=== PATIENT | male | born 1965 | race Caucasian/White ===

== ENCOUNTER → 2016-11-24 11:26 | Day surgery (SDC) | payer BC ==
--- NOTE | 2016-11-15 22:53 | HP ---
ADMISSION HISTORY AND PHYSICAL: DATE OF ADMISSION: 11/24/16 ATTENDING SURGEON: Jonn Cardoso MD (dictated by ALTHEA Gandara) CHIEF COMPLAINT: Left inguinal hernia. HISTORY OF PRESENT ILLNESS: This is a 51-year-old male who underwent open right inguinal herniorrhaphy with mesh approximately 10 to 12 years ago. He has noted pain intermittently in the left groin over the past 4 to 6 weeks that has particularly increased in relation to activity, i.e., bending, lifting, etc. He has not noted any particular bulge in the left groin. In addition, he has noticed an area of pain in the right groin superior to the prior open herniorrhaphy that comes and goes and feels like a "knot." There is no additional associated bulge and no GI or changes in the past month or two. He was seen by his PCP office and referred for surgical evaluation. An ultrasound was also ordered for the right side, which is scheduled for . He was seen in the office by Dr. Cardoso on 11/08/16 at which time exam confirmed the presence of left inguinal hernia, felt to be likely direct. There was no hernia noted on the right. There was a small area as described above that was felt to be consistent with a furuncle though this has not progressed one way or the other over the past week, per the patient. PAST MEDICAL HISTORY: 1. GERD. 2. Nephrolithiasis (he has had small bilateral kidney stones which were demonstrated on a noncontrast CT scan in 2016). 3. He has diarrhea predominant. 4. Irritable bowel syndrome, which is largely controlled by diet. 5. He was worked up in 2012 for chest pain that retrospectively appeared to be related to reflux disease. He did undergo stress testing echo and ultimately catheterization, which was negative for any coronary disease. He had a normal ejection fraction at that time. He was found to have a low HDL at that time as well though his other total cholesterol and LDL were within normal limits. PREVIOUS SURGERIES: Include: 1. Open right inguinal herniorrhaphy with mesh as noted above. 2. Bilateral varicose vein stripping. 3. Tonsillectomy, remotely. 4. Sinus surgery. 5. He has bilateral vasectomies. CURRENT MEDICATIONS: 1. Omeprazole 20 mg once daily. 2. Multivitamin once daily when he remembers. DRUG ALLERGIES: None known. FAMILY HISTORY: Strong for cardiovascular disease on his father's side. There is no known family history of bleeding or clotting disorders or problems with general anesthesia. SOCIAL HISTORY: The patient is . He has 2 children. He is employed doing senior living work. He denies smoking history. Drinks alcohol infrequently ( 1 to 2 times per month) and denies other drug use. REVIEW OF SYSTEMS: General: No recent constitutional symptoms or other acute illnesses. Cardiovascular: No recent chest pain, palpitations, history of hypertension, or minor angina. He did have a fairly complete workup in 2013 that was negative. Respiratory: No history of asthma, chronic cough, or shortness of breath. GI: No problems reported. He did undergo colonoscopy in 2013 at which time a couple small benign polyps were removed. He is unsure about recommendations of repeat exam though has not had any suspect symptoms in the interim. : No additions to above (history of nephrolithiasis). Endocrine: No diabetes or thyroid dysfunction. PHYSICAL EXAMINATION GENERAL: A well-nourished, well-developed male, in no acute distress. VITAL SIGNS: Height 75 inches, weight 231 pounds, BMI 28.9, blood pressure 126/ 84, pulse 78, and respirations 16. HEENT: Pupils equal, round, and reactive. EOMs intact. No conjunctival pallor. Oropharynx: Teeth in good repair. No intraoral lesions. NECK: No lymphadenopathy, thyromegaly, or masses. LUNGS: Clear to auscultation. No wheezes. HEART: Regular rate and rhythm. No murmur appreciated. ABDOMEN: There is some slight diastasis in the upper abdomen. Generally, the abdomen is flat and nontender to palpation without palpable masses or organomegaly. Specifically in the area superior to the right inguinal herniorrhaphy scar and at the medial aspect, there is a small (3 mm) nodule, which is palpable, but with insignificant tenderness. There is no palpable recurrent hernia on the right. On the left side with the patient in standing position and with Valsalva, there is a bulge consistent with left inguinal hernia, likely direct type. GENITALIA: Testes otherwise normal. EXTREMITIES: No edema. He does have a few varicosities in the posterior aspect of the left upper calf, asymptomatic. RECTAL: Not done. BACK: No spinous process or CVA tenderness. NEUROLOGICAL: Grossly intact. SKIN: He is well tanned (he goes to a tanning salon regularly). No suspicious rashes or lesions noted though complete skin survey was not done. IMPRESSION: Left inguinal hernia. PLAN/RECOMMENDATIONS: Laparoscopic repair, left inguinal hernia with mesh. ALTHEA PONCE CC: Dr. Padilla at [facility]* [id number]/CPS #: [id number] [facility]
[~2016-11-24 11:26] MED LIST: Atracurium* 10 MG/ML 10 ML VIAL ONE; Buffered Lidocaine 1% SYRIN* 3 ML/SYR SYRINGE INTRADERM ONE; Bupivacaine 0.25% EPI 200,000* 30 ML SDV ONE; Dexamethasone IV* 4 MG/ML 1 ML (4 MG) ONE; EPHEDrine (Pressors)* 50 MG/ML VIAL ONE; Famotidine IV* 10 MG/ML 2 ML (20 mg) IV ONE; Famotidine IV* 10 MG/ML 2 ML (20 mg) ONE; Glycopyrrolate IV* 0.2 MG/ML 1 ML VIAL ONE; KETAMINE HCL* 50 MG/ML 10 ML VIAL ONE; Ketorolac INJ* 30 MG/ML 1 ML VIAL ONE; Lidocaine 2% PF* 5 ML VIAL ONE; Midazolam* 1 MG/ML 5 ML VIAL (5 MG) ONE; Morphine INJ* 10 MG/ML 1 ML SYRINGE ONE; Morphine INJ* 2 MG/ML 1 ML SYRINGE IV PRN; Neostigmine Methylsulfate* 2 MG/2 ML SYRINGE ONE; Ondansetron INJ* 2 MG/ML VIAL ONE; PROCHLORPERAZINE INJ 5 MG/ML 2 ML VIAL IV PRN; Propofol* 10 MG/ML 20 ML BTL IV PUSH ONE; ceFAZolin 1 GM in Dextrose (*) 1 GM/50 ML BAG IVPB ONE; fentaNYL* 50 MCG/ML 2 ML VIAL (100 MCG VIAL) IV PRN; fentaNYL* 50 MCG/ML 2 ML VIAL (100 MCG VIAL) ONE; oxyCODONE/Acetamin 5/325 MG* TAB ONE
--- NOTE | 2016-11-24 13:44 | SURGPN ---
Brief Operative Note - Surgery Procedures: Procedures Pre-OP Diagnoses: Left inguinal hernia Post-op Diagnosis: same Procedure: Laparoscopic Left inguinal hernia repair with mesh Surgeon: Walker Asst: Nikita Cortes EBL: minimal IVF: 1300cc LR Specimen: none Drains: none
[2016-11-24] MEDS: oxyCODONE/Acetamin 5/325 MG* TAB PO PRN ×2 (14:29→14:35)
[2016-11-24 14:37] VITALS: BP 130/82
--- NOTE | 2016-11-25 03:38 | OP ---
DATE OF OPERATION: 11/24/16 [facility] DATE OF : 67 SURGEON: Jonn Cardoso MD SHELTER MONITOR: ALTHEA Law ANESTHESIOLOGIST: Dr. Cortes. ANESTHESIA: General. PRE-OP DIAGNOSIS: Symptomatic left inguinal hernia. POST-OP DIAGNOSIS: Symptomatic left inguinal hernia. OPERATIVE PROCEDURE: Laparoscopic left inguinal hernia repair with mesh. ESTIMATED BLOOD LOSS: Minimal blood loss. IV FLUIDS: 1300 cc of crystalloid fluid given. SPECIMEN: None. DRAINS: None. COUNTS: Lap pad count and instrument count correct at the end of the procedure. DESCRIPTION OF PROCEDURE: The patient was identified in the preoperative area and marked appropriately, case discussed, and he signed consent. He was taken back to the operating room and placed on the operating table in the supine position. Preoperative antibiotics were given. Sequential devices were placed on bilateral lower extremities. General anesthesia was induced. The patient's abdomen was clipped of hair, and prepped and draped in the standard surgical fashion. A time-out was performed. An infraumbilical incision was made. This was deepened down to the anterior fascia on the left, which was incised and entry into the preperitoneal plane was made. Finger dissection was then utilized on this site and a 12-mm blunt cannula was then inserted and allowed the preperitoneal plane to insufflate to a pressure of 12 mmHg. The patient tolerated the insufflation well. Additional 5-mm trocars were then placed in the lower midline and the dissection was started at the pubic symphysis. This was cleared off any tissue in the Spencer's ligament on the left, was cleared off in the Spencer's ligament on the right, a direct hernia looked scant, then looked small at first, was dissected free from the direct space. Epigastric vessels were identified and maintained anteriorly, and dissection carried out laterally to the space of Bogros. Next, the spermatic structures were isolated and skeletonized. A lipoma of the cord was reduced with gentle traction. The peritoneum extending towards the spermatic structures was not consistent with an indirect hernia, but still bluntly dissected posteriorly off the vas deferens. The external iliac vein was identified. There was no femoral hernia. The entire myopectineal orifice was identified, free of any hernia other than the direct hernia, which at this point we could appreciate fully. A large Bard 3D mesh was then opened up, the left-sided one, placed into the preperitoneal plane, allowed to unfurl, it was tagged just above the pubic symphysis, at Spencer's ligament, and then laterally. It did cross the midline and cover the full myopectineal orifice and then we allowed the preperitoneal plane to collapse. Mesh was intact with no wrinkling and under no tension. It was felt that there was some distention of the abdomen possibly consistent with pneumoperitoneum, although we did not see any rent in the peritoneum, but we decided to open up the posterior fascia, this was opened up and then the peritoneum was opened up. At this point, we did with the Luisa clamp the portion of small bowel. No serosal injury was identified, but this was brought up into our field and a single 3-0 silk suture was used to imbricate the bruise. The bowel was then allowed to drop back in. There was no pneumoperitoneum, anyhow. The posterior fascia was closed with 2-0 Polysorb suture and the anterior fascia was reapproximated with 0 Polysorb suture in figure-of-8 fashion. The fascia was injected with lidocaine, irrigated, and then all 3 skin incisions were reapproximated with 4-0 Monocryl subcuticular sutures followed by sterile dressing. The patient tolerated the procedure well and was transferred to PACU. CC: Dr. Ruthie Padilla; [facility] * [id number] #: [id number] MTDD
== END | disposition home or self-care (01) ==
LOC: OR 11:26
PROVIDERS: ATTEND Surgery
DX: K40.90 Unilateral inguinal hernia, without obstruction or gangrene, not specified as recurrent (principal); K21.9 Gastro-esophageal reflux disease without esophagitis; K58.9 Irritable bowel syndrome, unspecified
CPT/HCPCS: A9270-GY; C1781; J0690; J1100; J1885; J2250; J2270; J2405; J2704; J3010

== ENCOUNTER 2018-05-31 00:19 | Emergency (ER) | payer BC ==
[2018-05-31] MEDS ORDERED: Morphine VIAL* 10 MG/ML 1 ML VIAL IV ONE (00:56)
[2018-05-31] MEDS ORDERED: NS 0.9% 1000 ML* 1,000 ML IV ONE (00:56)
[2018-05-31] MEDS ORDERED: Ondansetron INJ* 2 MG/ML VIAL IV ONE (00:56)
[2018-05-31 01:07] LABS: ABS Basophils 0.1 10^3/ul (0-0.2); ABS Eosinophils 0.3 10^3/ul (0-0.6); ABS Lymphocytes 2.4 10^3/ul (1.0-4.8); ABS Monocytes 1.2 10^3/ul (0-0.8); ABS Neutrophils 4.4 10^3/ul (1.5-7.7); ABS Nucleated RBC 0 10^3/ul; Eosinophil % 3.9 % (0-6); Hematocrit 45 % (42-52); Hemoglobin 15.3 g/dl (14.0-18.0); Lymphocyte % 27.9 % (25-47); Mean Corpuscular HGB Conc 34 g/dl (31-36); Mean Corpuscular Hemoglobin 31 pg (27-31); Mean Corpuscular Volume 90 fL (80-94); Mean Platelet Volume 9.4 um3 (7.4-10.4); Nucleated Red Blood Cells % 0.1; Platelet Count 159 10^3/ul (150-450); Red Blood Count 4.94 10^6/ul (4.00-5.40); Red Cell Distribution Width 14 % (10.5-15); White Blood Count 8.5 10^3/ul (3.5-10.8)
[2018-05-31] MEDS ORDERED: Ketorolac INJ* 30 MG/ML 1 ML VIAL IV ONE (01:22)
[2018-05-31 01:31] LABS: EGFR Non-African American 63.8 (>60)
--- NOTE | 2018-05-31 01:49 | ED ---
Back Pain - HPI Summary HPI Summary: Patient complains of right-sided flank pain starting 10:30 PM tonight. Pain described as sharp, constant, rated 8 out of 10, associated with nausea vomiting 3. Patient has history of kidney stones, states this feels just like a kidney stone. Denies fever, cough, sore throat, CP, SOB, abdominal pain, change in urine, change in BM, rash. Medical history is none. - History of Current Complaint Chief Complaint: EDFlankPain Stated Complaint: RT SIDE FLANK PAIN Time Seen by Provider: 05/31/18 00:41 Hx Obtained From: Patient Onset/Duration: Sudden Onset Onset/Duration: Started Hours Ago Timing: Constant Back Pain Location: Is Discrete @ Severity Initially: Severe Severity Currently: Severe Pain Intensity: 8 Pain Scale Used: 0-10 Numeric Character: Sharp Associated Signs And Symptoms: Positive: Flank Pain - Allergies/Home Medications Allergies/Adverse Reactions: Allergies Allergy/AdvReac Type Severity Reaction Status Date / Time MS Watermelon Flavor Allergy See Comment Verified 05/31/18 00:24 [Watermelon Flavor] PMH/Surg Hx/FS Hx/Imm Hx Endocrine/Hematology History: Denies: Hx Anticoagulant Therapy, Hx Diabetes Cardiovascular History: Reports: Hx Angina, Other Cardiovascular Problems/ Disorders - had cardiac cath, stress test by dr irene Denies: Hx Coronary Artery Disease, Hx Hypercholesterolemia, Hx Hypertension , Hx Myocardial Infarction, Hx Valvular Heart Disease Respiratory History: Reports: Hx Pneumonia, Hx Seasonal Allergies Denies: Hx Asthma, Hx Chronic Obstructive Pulmonary Disease (COPD) GI History: Reports: Hx Gastroesophageal Reflux Disease - controlled with med, Hx Irritable Bowel - controlled by diet History: Reports: Hx Kidney Stones - 2015 Musculoskeletal History: Reports: Hx Back Problems, Other Musculoskeletal History - left foot plantar fasciitis Sensory History: Reports: Hx Contacts or Glasses - contacts, refuses to bring glasses Opthamlomology History: Reports: Hx Contacts or Glasses - contacts, refuses to bring glasses - Surgical History Surgery Procedure, Year, and Place: tonsillectomy @2 1/2 years old, [facility] [place]. sinus surgery, [facility] [place]. right inguinal hernia repair, [facility] [place]. varicose viens 2 times left leg, 1 time right leg, [facility] [place]. vasectomy, 1997 - [facility] [place] Hx Anesthesia Reactions: No Infectious Disease History: No Infectious Disease History: Denies: Traveled Outside the [place] in Last 30 Days - Social History Alcohol Use: Occasionally Alcohol Amount: 1-2 per month Substance Use Type: Reports: None Smoking Status (MU): Never Smoked Tobacco Review of Systems Constitutional: Negative Eyes: Negative ENT: Negative Cardiovascular: Negative Respiratory: Negative Gastrointestinal: Negative Positive: flank pain Musculoskeletal: Negative Skin: Negative Neurological: Negative Psychological: Normal All Other Systems Reviewed And Are Negative: Yes Physical Exam Triage Information Reviewed: Yes Vital Signs On Initial Exam: Initial Vitals Temp Pulse Resp BP Pulse Ox 98 F 75 20 156/88 98 05/31/18 00:21 05/31/18 00:21 05/31/18 00:21 05/31/18 00:21 05/31/18 00:21 Vital Signs Reviewed: Yes Appearance: Positive: Well-Appearing Skin: Positive: Warm Head/Face: Positive: Normal Head/Face Inspection Eyes: Positive: Normal Neck: Positive: Supple Respiratory/Lung Sounds: Positive: Clear to Auscultation Cardiovascular: Positive: Normal Abdomen Description: Positive: Nontender Musculoskeletal: Positive: Normal Neurological: Positive: Normal Psychiatric: Positive: Normal AVPU Assessment: Alert - [place] Coma Scale Best Eye Response: 4 - Spontaneous Best Motor Response: 6 - Obeys Commands Best Verbal Response: 5 - Oriented Coma Scale Total: 15 Diagnostics - Vital Signs Vital Signs Temp Pulse Resp BP Pulse Ox 05/31/18 01:05 18 05/31/18 00:58 138/90 05/31/18 00:21 98 F 75 20 156/88 98 - Laboratory Lab Results: Lab Results 05/31/18 05/31/18 Range/Units 00:56 00:56 WBC 8.5 (3.5-10.8) 10^3/ul RBC 4.94 (4.00-5.40) 10^6/ul Hgb 15.3 (14.0-18.0) g/dl Hct 45 (42-52) % MCV 90 (80-94) fL MCH 31 (27-31) pg MCHC 34 (31-36) g/dl RDW 14 (10.5-15) % Plt Count 159 (150-450) 10^3/ul MPV 9.4 (7.4-10.4) um3 Neut % (Auto) 52.3 (38-83) % Lymph % (Auto) 27.9 (25-47) % Grimes % (Auto) 14.5 H (0-7) % Eos % (Auto) 3.9 (0-6) % Baso % (Auto) 1.4 (0-2) % Absolute Neuts (auto) 4.4 (1.5-7.7) 10^3/ul Absolute Lymphs (auto) 2.4 (1.0-4.8) 10^3/ul Absolute Monos (auto) 1.2 H (0-0.8) 10^3/ul Absolute Eos (auto) 0.3 (0-0.6) 10^3/ul Absolute Basos (auto) 0.1 (0-0.2) 10^3/ul Absolute Nucleated RBC 0 10^3/ul Nucleated RBC % 0.1 Sodium 138 (135-145) mmol/L Potassium 3.5 (3.5-5.0) mmol/L Chloride 106 (101-111) mmol/L Carbon Dioxide 27 (22-32) mmol/L Anion Gap 5 (2-11) mmol/L BUN 17 (6-24) mg/dL Creatinine 1.20 H (0.67-1.17) mg/dL Est GFR ( Amer) 77.2 (>60) Est GFR (Non-Af Amer) 63.8 (>60) BUN/Creatinine Ratio 14.2 (8-20) Glucose 108 H (70-100) mg/dL Calcium 9.1 (8.6-10.3) mg/dL Total Bilirubin 0.50 (0.2-1.0) mg/dL AST 22 (13-39) U/L ALT 24 (7-52) U/L Alkaline Phosphatase 91 (34-104) U/L C-Reactive Protein < 1.00 (<8.01) mg/L Total Protein 6.5 (6.4-8.9) g/dL Albumin 4.1 (3.2-5.2) g/dL Globulin 2.4 (2-4) g/dL Albumin/Globulin Ratio 1.7 (1-3) Result Diagrams: 05/31/18 00:56 05/31/18 00:56 Lab Statement: Any lab studies that have been ordered have been reviewed, and results considered in the medical decision making process. - CT ab/pel w/o CT Interpretation: No Acute Changes CT Interpretation Completed By: Radiologist Back Pain Course/Dx - Course Course Of Treatment: Patient complains of right-sided flank pain starting 10:30 PM tonight. Pain described as sharp, constant, rated 8 out of 10, associated with nausea vomiting 3. Patient has history of kidney stones, states this feels just like a kidney stone. Denies fever, cough, sore throat, CP, SOB, abdominal pain, change in urine, change in BM, rash. Medical history is none. Vital signs within normal limits. Pain control with morphine and Toradol. CT abdomen pelvis without contrast negative for kidney stones. Waiting UA results. - Diagnoses Provider Diagnoses: Flank pain Discharge - Sign-Out/Discharge Documenting (check all that apply): Sign-Out Patient Signing out patient TO: Marques Santiago - Discharge Plan Condition: Stable Referrals: Ruthie Sandoval MD [Primary Care Provider] - - Billing Disposition and Condition Condition: STABLE
--- NOTE | 2018-05-31 01:53 | RAD ---
EXAM: CT Abdomen and Pelvis Without Intravenous Contrast CLINICAL HISTORY: 52 years old, male; Pain; Abdominal pain; Flank; Right; Prior surgery; Surgery date: 6+ months; Surgery type: Bilateral hernia repairs; Patient HX: Rt sided flank pain/hx of renal stones TECHNIQUE: Axial computed tomography images of the abdomen and pelvis without intravenous contrast. All CT scans at this facility use at least one of these dose optimization techniques: automated exposure control; mA and/or kV adjustment per patient size (includes targeted exams where dose is matched to clinical indication); or iterative reconstruction. Coronal and sagittal reformatted images were created and reviewed. COMPARISON: A/P WO CT ABD/PEL W/O 03/26/2016 11:40 AM FINDINGS: Lung bases: There is bibasilar atelectatic change or scarring. ABDOMEN: Liver: Unremarkable. Gallbladder and bile ducts: Unremarkable. No calcified stones. No ductal dilation. Pancreas: Unremarkable. No ductal dilation. Spleen: Unremarkable. No splenomegaly. Adrenals: Unremarkable. No mass. Kidneys and ureters: Stable nonobstructing bilateral nephrolithiasis. No visible ureteral calculi on the current exam. Stomach and bowel: Stable mild colonic diverticulosis without evidence for acute diverticulitis. No obstruction. PELVIS: Appendix: The appendix is unremarkable and seen best on axial image 92 of series 4. Bladder: Unremarkable. No stones. Reproductive: Stable prostate gland calcifications. ABDOMEN and PELVIS: Intraperitoneal space: Unremarkable. No free air. No significant fluid collection. Bones/joints: Stable mild degenerative changes of the spine. No acute fracture. No dislocation. Soft tissues: Unremarkable. Vasculature: Stable calcified phleboliths in the pelvis. No abdominal aortic aneurysm. Lymph nodes: Unremarkable. No enlarged lymph nodes. IMPRESSION: 1. Stable nonobstructing bilateral nephrolithiasis. No visible ureteral calculi on the current exam. 2. Stable mild colonic diverticulosis without evidence for acute diverticulitis.
[2018-05-31 03:41] LABS: Urine Appearance Clear; Urine Blood N (Negative); Urine Color Colorless; Urine Ketones Negative (Negative); Urine Protein N (Negative); Urine Urobilinogen N (Negative)
--- NOTE | 2018-05-31 06:00 | ED ---
Progress - Progress Note Progress Note: Patient is received as a sign out from ALTHEA Vázquez to Dr. Santiago pending UA results. UA results showed no abnormal findings. Patient was diagnosed with right flank pain and discharged to home. Patient was instructed to follow up with PCP in 1-2 days. Course/Dx - Course Course Of Treatment: Patient is received as a sign out from ALTHEA Vázquez to Dr. Santiago pending UA results. UA results showed no abnormal findings. Patient was diagnosed with right flank pain and discharged to home. Patient was instructed to follow up with PCP in 1-2 days. - Diagnoses Provider Diagnoses: Right flank pain Discharge - Sign-Out/Discharge Documenting (check all that apply): Patient Departure - discharge - Discharge Plan Condition: Stable Disposition: HOME Patient Education Materials: Flank Pain (ED) Referrals: Ruthie Sandoval MD [Primary Care Provider] - 2 Days Additional Instructions: RETURN TO THE EMERGENCY DEPARTMENT FOR CHANGING OR WORSENING SYMPTOMS. FOLLOW UP WITH PRIMARY CARE PHYSICIAN IN 1-2 DAYS. - Attestation Statements Document Initiated by Scribe: Yes Documenting Scribe: Nicholas Arvizu Provider For Whom Giovanie is Documenting (Include Credential): Marques Santiago MD Scribe Attestation: Nicholas Berger, scribed for Marques Santiago MD on 05/31/18 at 0605.
[2018-05-31 06:13] VITALS: BP 134/79
== END 2018-05-31 06:12 | disposition home or self-care (01) ==
LOC: ED 00:19
DX: R10.9 Unspecified abdominal pain (principal); R11.2 Nausea with vomiting, unspecified; K21.9 Gastro-esophageal reflux disease without esophagitis; Z87.442 Personal history of urinary calculi; Z79.899 Other long term (current) drug therapy
CPT/HCPCS: 36415; 74176; 80053; 81003; 85025; 86140; 96361; 96374; 96375; 99283; J1885; J2270; J2405

== ENCOUNTER 2018-06-08 03:25 | Emergency (ER) | payer BC ==
[2018-06-08] MEDS ORDERED: NS 0.9% 1000 ML* 1,000 ML IV ONE (03:51)
[2018-06-08] MEDS ORDERED: Ketorolac INJ* 30 MG/ML 1 ML VIAL IV PUSH ONE (03:52)
[2018-06-08] MEDS ORDERED: Metoclopramide IV* 5 MG/ML 2 ML VIAL IV SLOW PU ONE (03:52)
--- NOTE | 2018-06-08 04:25 | ED ---
Abdominal Pain/Male - HPI Summary HPI Summary: This is scribe Corky Zuleikagamaliel documenting for attending Dr. Marques Santiago MD. This patient is a 52 year old M presenting to [facility] accompanied by a woman with a chief complaint of right side flank pain since 00:30 tonight. The patient rates the pain 8/10 in severity. Patient reports vomiting and nausea. Patient denies fever or urinary symptoms. Pt was here 8 days ago for the same pain, diagnosed with gastritis. PMHX kidney stones. I, Dr. Santiago, personally performed the services described in this documentation as scribed in my presence and it is both accurate and complete. - History of Current Complaint Chief Complaint: EDFlankPain Stated Complaint: FLANK PAIN Time Seen by Provider: 06/08/18 03:44 Hx Obtained From: Patient Onset/Duration: Sudden Onset, Lasting Hours Timing: Constant Severity Initially: Severe Severity Currently: Severe Pain Intensity: 8 Pain Scale Used: 0-10 Numeric Location: Discrete At: RLQ, Flank - right Associated Signs And Symptoms: Positive: Nausea, Vomiting - Allergies/Home Medications Allergies/Adverse Reactions: Allergies Allergy/AdvReac Type Severity Reaction Status Date / Time MS Watermelon Flavor Allergy See Comment Verified 06/08/18 03:32 [Watermelon Flavor] PMH/Surg Hx/FS Hx/Imm Hx Endocrine/Hematology History: Denies: Hx Anticoagulant Therapy, Hx Diabetes Cardiovascular History: Reports: Hx Angina, Other Cardiovascular Problems/ Disorders - had cardiac cath, stress test by dr irene Denies: Hx Coronary Artery Disease, Hx Hypercholesterolemia, Hx Hypertension , Hx Myocardial Infarction, Hx Valvular Heart Disease Respiratory History: Reports: Hx Pneumonia, Hx Seasonal Allergies Denies: Hx Asthma, Hx Chronic Obstructive Pulmonary Disease (COPD) GI History: Reports: Hx Gastroesophageal Reflux Disease - controlled with med, Hx Irritable Bowel - controlled by diet History: Reports: Hx Kidney Stones - 2016 Musculoskeletal History: Reports: Hx Back Problems, Other Musculoskeletal History - left foot plantar fasciitis Sensory History: Reports: Hx Contacts or Glasses - contacts, refuses to bring glasses Opthamlomology History: Reports: Hx Contacts or Glasses - contacts, refuses to bring glasses - Surgical History Surgery Procedure, Year, and Place: tonsillectomy @2 1/2 years old, [facility] [place]. sinus surgery, [facility] [place]. right inguinal hernia repair, [facility] [place]. varicose viens 2 times left leg, 1 time right leg, [facility] [place]. vasectomy, 1997 - [facility] [place] Hx Anesthesia Reactions: No Infectious Disease History: No Infectious Disease History: Denies: Traveled Outside the [place] in Last 30 Days - Family History Known Family History: Positive: Other - kidney stones - Social History Alcohol Use: Occasionally Alcohol Amount: 1-2 per month Substance Use Type: Reports: None Smoking Status (MU): Never Smoked Tobacco Review of Systems Negative: Fever Positive: Abdominal Pain, Vomiting, Nausea Positive: flank pain - right. Negative: dysuria, hematuria All Other Systems Reviewed And Are Negative: Yes Physical Exam - Summary Physical Exam Summary: GENERAL: Patient is a well-developed and nourished male who is lying comfortable in the stretcher. Patient is not in any acute respiratory distress. HEAD AND FACE: No signs of trauma. No ecchymosis, hematomas or skull depressions. No sinus tenderness. EYES: PERRLA, EOMI x 2, No injected conjunctiva, no nystagmus. EARS: Hearing grossly intact. Ear canals and tympanic membranes are within normal limits. MOUTH: Oropharynx within normal limits. NECK: Supple, trachea is midline, no adenopathy, no JVD, no carotid bruit, no c- spine tenderness, neck with full ROM. CHEST: Symmetric, no tenderness at palpation LUNGS: Clear to auscultation bilaterally. No wheezing or crackles. CVS: Regular rate and rhythm, S1 and S2 present, no murmurs or gallops appreciated. ABDOMEN: RLQ tenderness. Right CVA tenderness. No signs of distention. No rebound no guarding, and no masses palpated. Bowel sounds are normal. EXTREMITIES: FROM in all major joints, no edema, no cyanosis or clubbing. NEURO: Alert and oriented x 3. No acute neurological deficits. Speech is normal and follows commands. SKIN: Dry and warm Triage Information Reviewed: Yes Vital Signs On Initial Exam: Initial Vitals Temp Pulse Resp BP Pulse Ox 97.7 F 81 20 135/85 100 06/08/18 03:25 06/08/18 03:25 06/08/18 03:25 06/08/18 03:25 06/08/18 03:25 Vital Signs Reviewed: Yes Diagnostics - Vital Signs Vital Signs Temp Pulse Resp BP Pulse Ox 06/08/18 03:25 97.7 F 81 20 135/85 100 - Laboratory Result Diagrams: 06/08/18 04:16 06/08/18 04:16 Lab Statement: Any lab studies that have been ordered have been reviewed, and results considered in the medical decision making process. - CT Abd/Pelvis CT Interpretation Completed By: Radiologist - Moderate right-sided hydroureteronephrosis secondary to 5 mm calculus at the distal right ureter. ED physician has reviewed this report Re-Evaluation - Re-Evaluation First Eval Re-Evaluation Time: 05:23 Change: Improved Comment: Patient is feeling better and is pain free now. Patient will be discharged. Abdominal Pain Fem Course/Dx - Course Course Of Treatment: This patient is a 52 year old M presenting to [facility] accompanied by a woman with a chief complaint of right side flank pain since 00: 30 tonight. The patient rates the pain 8/10 in severity. Patient reports vomiting and nausea. Patient denies fever or urinary symptoms. Pt was here 8 days ago for the same pain, diagnosed with gastritis. PMHX kidney stones. CT Abd/Pelvis reveals, as per radiologist, Moderate right-sided hydroureteronephrosis secondary to 5 mm calculus at the. distal right ureter. ED physician has reviewed this radiology report. In the ED course the patient was given IV fluids. Patient will be discharged with prescription for Ibuprofen , Oxycodone, and Tamsulosin and follow up from Dr. Clark. The patient is agreeable with this plan. - Diagnoses Provider Diagnoses: Right ureteral stone, Renal colic Discharge - Sign-Out/Discharge Documenting (check all that apply): Patient Departure - discharge - Discharge Plan Condition: Stable Disposition: HOME Prescriptions: Ibuprofen TAB* [Motrin TAB* 800 MG] 800 mg PO Q6H PRN #30 tab PRN Reason: Pain oxyCODONE/Acetamin 5/325 MG* [Percocet 5/325 TAB*] 1 tab PO Q6H PRN #14 tab MDD 4 PRN Reason: Pain Tamsulosin CAP* [Flomax CAP*] 0.4 mg PO DAILY #7 cap Patient Education Materials: Renal Colic (ED), Ureteral Stones (ED) Referrals: Fabio Clark MD [Medical Doctor] - 2 Days Additional Instructions: RETURN TO THE EMERGENCY DEPARTMENT FOR CHANGING OR WORSENING SYMPTOMS. FOLLOW UP WITH UROLOGY IN 1-2 DAYS. - Attestation Statements Document Initiated by Scribe: Yes Documenting Scribe: Corky Ottman Provider For Whom Scribe is Documenting (Include Credential): Marques Santiago MD Scribe Attestation: I, Corky Longoira, scribed for Marques Santiago MD on 06/08/18 at 0523.
[2018-06-08 04:30] LABS: ABS Basophils 0.1 10^3/ul (0-0.2); ABS Eosinophils 0.1 10^3/ul (0-0.6); ABS Lymphocytes 1.2 10^3/ul (1.0-4.8); ABS Neutrophils 8.7 10^3/ul (1.5-7.7); ABS Nucleated RBC 0 10^3/ul; Eosinophil % 0.7 % (0-6); Hematocrit 47 % (42-52); Hemoglobin 16.1 g/dl (14.0-18.0); Lymphocyte % 10.9 % (25-47); Mean Corpuscular HGB Conc 34 g/dl (31-36); Mean Corpuscular Hemoglobin 31 pg (27-31); Mean Corpuscular Volume 91 fL (80-94); Mean Platelet Volume 9.4 um3 (7.4-10.4); Nucleated Red Blood Cells % 0; Platelet Count 176 10^3/ul (150-450); Red Blood Count 5.21 10^6/ul (4.00-5.40); Red Cell Distribution Width 13 % (10.5-15); White Blood Count 11.1 10^3/ul (3.5-10.8)
[2018-06-08] MEDS: Morphine INJ* 4 MG/ML 1 ML SYRINGE (NEW SYRINGE VERSION) IV ONE ×2 (04:40→05:17)
[2018-06-08 04:41] LABS: EGFR Non-African American 52.1 (>60)
[2018-06-08] MEDS ORDERED: Potassium Chlor TAB* 20 MEQ TAB.ER PO ONE (04:41)
--- NOTE | 2018-06-08 05:05 | RAD ---
EXAM: CT Abdomen and Pelvis Without Intravenous Contrast EXAM DATE/TIME: 06/08/2018 4:07 AM CLINICAL HISTORY: 52 years old, male; Pain; Abdominal pain; Flank; Right; Additional info: Abd pain TECHNIQUE: Axial computed tomography images of the abdomen and pelvis without intravenous contrast. All CT scans at this facility use at least one of these dose optimization techniques: automated exposure control; mA and/or kV adjustment per patient size (includes targeted exams where dose is matched to clinical indication); or iterative reconstruction. Coronal and sagittal reformatted images were created and reviewed. COMPARISON: A/P WO CT ABD/PEL W/O 05/31/2018 1:19 AM FINDINGS: Lung bases: Unremarkable. No mass. No consolidation. ABDOMEN: Liver: Unremarkable. Gallbladder and bile ducts: Unremarkable. No calcified stones. No ductal dilation. Pancreas: Unremarkable. No ductal dilation. Spleen: Unremarkable. No splenomegaly. Adrenals: Unremarkable. No mass. Kidneys and ureters: Nephrolithiasis involving the right greater than left kidneys measure maximally up to 3 mm. Moderate right-sided hydroureteronephrosis secondary to 5 mm calculus at the distal aspect of the right ureter. Stomach and bowel: Mild diverticulosis without diverticulitis. No obstruction. PELVIS: Appendix: No findings to suggest acute appendicitis. Bladder: Unremarkable. No stones. Reproductive: Prominent prostate gland. There is prostate calcification. ABDOMEN and PELVIS: Intraperitoneal space: Unremarkable. No free air. No significant fluid collection. Bones/joints: There are degenerative changes involving the lumbar spine, greatest at L4-L5. No acute fracture. No dislocation. Soft tissues: Unremarkable. Vasculature: There are phleboliths within the pelvis. No abdominal aortic aneurysm. Lymph nodes: Unremarkable. No enlarged lymph nodes. IMPRESSION: Moderate right-sided hydroureteronephrosis secondary to 5 mm calculus at the distal right ureter. To contact [facility] with a general question: [facility] - [phone] For direct physician to physician contact: Physician Hotline - [phone] [facility] ([facility] Facility ID #[id number])
[2018-06-08 05:10] LABS: Urine Appearance Cloudy; Urine Blood 3+ (Negative); Urine Color Yellow; Urine Ketones 1+ (Negative); Urine Protein 1+(30 mg/dL) (Negative); Urine Specific Gravity 1.017 (1.010-1.030); Urine Urobilinogen Negative (Negative)
[2018-06-08] MEDS ORDERED: Tamsulosin CAP* 0.4 MG PO ONE (05:14)
[2018-06-08 05:16] LABS: Urine Red Blood Cell 3+(>10/hpf) (Absent); Urine White Blood Cell Absent (Absent)
[2018-06-08 06:56] VITALS: BP 127/71
== END 2018-06-08 05:50 | disposition home or self-care (01) ==
LOC: ED 03:25
DX: N20.1 Calculus of ureter (principal); N23 Unspecified renal colic; R10.84 Generalized abdominal pain; R11.2 Nausea with vomiting, unspecified
CPT/HCPCS: 36415; 74176; 80053; 81003; 81015; 83690; 83735; 85025; 86140; 96361; 96374; 96375; 99283; A9270-GY; J1885; J2270; J2765

== ENCOUNTER → 2018-06-12 08:52 | Day surgery (SDC) | payer BC | END | disposition home or self-care (01) | LOC: OR 08:52 | PROVIDERS: ATTEND Urology | DX: Z53.9 Procedure and treatment not carried out, unspecified reason (principal) ==